=== PATIENT | male | born 1955 | race Two or more races ===

== ENCOUNTER 2020-08-28 13:24 | Outpatient (CLI) | payer MEDICAID ==
[~2020-08-28] VITALS: Ht 170.2 cm; Wt 76.2 kg
[2020-08-28 13:35] VITALS: BP 129/75
--- NOTE | 2020-08-28 14:30 | Consultation ---
DATE OF CONSULTATION: 08/28/2020 CONSULTING PHYSICIAN: Zuhair Hewitt MD. CHIEF COMPLAINT: Referral for colonoscopy, had abnormal colonoscopy eight years ago with cancer in the polyp. PAST MEDICAL HISTORY: 1. Hypertension. 2. Hypercholesterolemia. 3. Diabetes. 4. Colonic polyps. 5. Colon cancer. PAST SURGICAL HISTORY: Deviated septum. MEDICATIONS: See medication reconciliation list. FAMILY HISTORY: No family history of GI malignancy. SOCIAL HISTORY: The patient denies any tobacco, alcohol, or drug abuse. ALLERGIES: No known drug allergies. REVIEW OF SYSTEMS: A 10-point review of systems was performed and was negative. PHYSICAL EXAMINATION: VITAL SIGNS: Temperature 97.7, pulse is 72, respirations 20. Height is 5 feet 7 inches, weight 168. HEENT: Normocephalic, atraumatic. Sclerae anicteric. NECK: Supple. No evidence of obvious lymphadenopathy. CARDIOVASCULAR: Regular rate and rhythm. Plus S1 and S2. LUNGS: Clear to auscultation bilaterally. ABDOMEN: Positive bowel sounds. Soft and nontender. No rebound. No guarding. No peritoneal sign. EXTREMITIES: No cyanosis. No clubbing. No edema. ASSESSMENT/PLAN: This is a 64-year-old male with past medical history of colonic cancer, was found in the polyp. Last colonoscopy over about eight years ago, needs repeat colonoscopy. The patient was given instruction for colonoscopy. Risks and benefits of procedure was explained to him. We will schedule him as soon as authorization is obtained. Zuhair Hewitt M.D. DR: PERNELL JOB#: [id number] CC:
== END 2020-08-28 15:24 | disposition home or self-care (01) ==
LOC: PAN 13:24
DX: I10 Essential (primary) hypertension (principal); E78.00 Pure hypercholesterolemia, unspecified; E11.9 Type 2 diabetes mellitus without complications; Z86.010 Personal history of colon polyps; Z85.038 Personal history of other malignant neoplasm of large intestine
CPT/HCPCS: G0463